=== PATIENT | male | born 1930 | race Caucasian/White ===

== ENCOUNTER 2018-02-20 10:12 | Emergency (ER) | payer OTHER ==
--- NOTE | 2018-02-20 10:52 | EDPHY ---
H & P Smoking Status: Former smoker Time Seen by Provider: 02/20/18 10:52 HPI/ROS: CHIEF COMPLAINT: Arm laceration and bleeding from the head HISTORY OF PRESENT ILLNESS: Patient was changing a large truck tire just prior to arrival and dropped it, landed on his chest pushing him onto his back on the ground. He presents with bleeding from left arm as well as the head, with some chest and back discomfort after the injury. Symptoms moderate, worse with movement, started just after dropping the tire on his chest. No radiation. REVIEW OF SYSTEMS: Eye: no change in vision ENT: no sore throat Cardiac: Right posterior chest pain at the scapular area Pulmonary: no cough or SOB Abdomen: no vomiting, diarrhea, abdominal pain Musculoskeletal: No neck or arm or leg pain. Has some low back pain after the fall. Skin: Right facial abrasion on left arm laceration Neuro: no headache, no weakness or numbness in extremities Constitutional: no fever : no urinary symptoms or hematuria A comprehensive 10 point review of systems is otherwise negative aside from elements mentioned in the history of present illness. PAST MEDICAL HISTORY: Atrial fibrillation on Eliquis, hernia, left knee and right hip surgery. Social history: Here with family General Appearance: Alert and conversant, cooperative. Eyes: No scleral icterus. Pupils equal and reactive extraocular motion intact. ENT, Mouth: Normal mucous membranes. Respiratory: Normal respiratory effort, breath sounds equal, lungs are clear to auscultation. No crepitus. Cardiovascular: Regular rate and rhythm. Normal perfusion in left hand, normal left radial pulse. Gastrointestinal: Abdomen is soft and non tender. Nontender over liver and spleen. Neurological: Alert, face symmetric, normal motor and sensory in extremities. He is able to sit on the side of the bed unassisted and use the urinal. Skin: Left forearm laceration without bony tenderness. Normal motor and sensory in fingers of left hand, and strength of wrist in dorsal and volar movmeent. Right forehead abrasion. Abrasions on the spine posteriorly in the midthoracic region. Musculoskeletal: No midline spinal tenderness, no extremity bony tenderness. Specifically no cervical mid thoracic or lumbar spine tenderness to palpation. Psychiatric: Not agitated. Emergency Department course/MDM: Noncontrast head CT for head trauma on anticoagulation, wound care, chest x-ray. 1138: negative head CT per Lety. Please see Mohinder Jack PA-C note for wound repair. 1504: Chest CT per Kinjal, negative for acute injury. 1632: Lumbar spine films show old anterolisthesis of L2 on L3, no acute traumatic findings, discussed with Chuck. Ambulatory, wants discharge which I think is reasonable at this time. Rx written for 2.5mg oxycodone #7, patient request. No NSAIDS. Will hold his eliquis for 48 hours, on it for Atrial Fibrillation, slight increased risk of stroke discussed, think benefit of lower bleeding is worth very slight stroke risk over 48 hours, consented. (Julio Dumont) Constitutional: Initial Vital Signs Temperature (C) 37.1 C 02/20/18 10:22 Heart Rate 107 H 02/20/18 10:22 Respiratory Rate 18 02/20/18 10:22 Blood Pressure 115/67 02/20/18 10:22 O2 Sat (%) 94 02/20/18 10:22 O2 Delivery Mode Room Air Allergies/Adverse Reactions: oxycodone [Oxycodone] Allergy (Intermediate, Verified 02/20/18 10:15) NAUSEA Sulfa (Sulfonamide Antibiotics) [Sulfa(Sulfonamide Antibiotics)] Allergy ( Intermediate, Verified 02/20/18 10:15) FEVER, PAIN, NAUSEA ibuprofen Allergy (Unknown, Verified 02/20/18 10:15) Unknown Home Medications: Medication Instructions Recorded Albuterol Sulfate 4 mg PO DAILY 03/27/14 Aspirin [Aspirin 81mg (*)] 81 mg PO DAILY 03/27/14 Atorvastatin Calcium [Lipitor 40 40 mg PO DAILY 03/27/14 mg (*)] Beta-Carotene(A) W-C & E/Min 1 tab PO DAILY 03/27/14 [Ocuvite] Cetirizine HCl [Allergy Relief] 10 mg PO DAILY 03/27/14 Digoxin [Lanoxin 0.25 mg] 0.25 mg PO DAILY 03/27/14 Fluticasone/Salmeter 250/50Mcg 1 puffs IH BID 03/27/14 [Advair 250/50 (*)] Metoprolol Succinate Xr [Toprol Xl 25 mg PO DAILY 03/27/14 25 mg (*)] Montelukast Sodium [Singulair 10 10 mg PO DAILY@1800 03/27/14 mg (*)] Mission-3 Fatty Acids/Fish Oil [Fish 1 each PO DAILY 03/27/14 Oil 1,000 mg Capsule] Omeprazole [Prilosec] 40 mg PO DAILY 03/27/14 Psyllium Husk (with Sugar) 1 each PO DAILY 03/27/14 [Metamucil Packet] Sodium Chloride [Saline [place]] 2 ml NASAL PRN PRN 03/27/14 Solifenacin Succinate [Vesicare 5 5 mg PO DAILY8 03/27/14 MG (*)] Vitamin B Complex [Super B-50 1 each PO DAILY 03/27/14 Complex] Acetaminophen [Tylenol 325mg (*)] 325 - 650 mg PO Q4 PRN #0 tab 04/15/14 Ferrous Sulfate [Slow Fe 140 MG 140 mg PO DAILY #30 tab.er 04/15/14 (*)] Ondansetron Odt [Zofran Odt 4 mg 4 - 8 mg PO Q6 PRN #0 tab 04/15/14 (*)] traMADol [Ultram 50 mg (*)] 100 mg PO BID #0 tab 04/15/14 Eliquis 02/20/18 Medical Decision Making - Diagnostics Imaging: Discussed imaging studies w/ merchandise buyer Radiologist, I viewed and interpreted images myself - Diagnostics Imaging Results: Imaging Impressions Chest X-Ray 02/20/18 11:03 Impression: Tiny bilateral pleural effusions. Head CT 02/20/18 11:03 Impression: 1. No acute intracranial process. 2. Changes of chronic microvascular ischemic disease. 3. Chronic sinusitis and chronic nasal secretions. Stable, possible meningioma, near the left auditory canal. Findings and recommendations discussed with JULIO DUMONT at 1137 hour, 2017. Lumbar Spine X-Ray 02/20/18 13:09 Impression: 1. No acute osseous findings. 2. Stable grade 1 anterolisthesis of L2 relative to L1 and L3, with slight increase in multilevel degenerative change, as above. Chest CT 02/20/18 13:27 Impression: 1. Mild bilateral pleural effusions right side greater than left with adjacent atelectatic change. 2. No evidence of fracture about the chest. 3. Atherosclerotic calcifications associated with the thoracic aorta and coronary arteries. Coronary stents are suspected. 4. Moderate to marked enlargement of the right atrium as well as moderate enlargement of the left atrium. This could be related to chronic ventricular heart failure versus possibility of mitral and/or tricuspid valve regurgitation. Findings discussed with Julio Dumont M.D. at 15:05 hour, 02/20/2018. Procedures: Procedure: Laceration repair. I was requested by Dr. Dumont to perform wound closure I explained the indications, risks and benefits for both laceration repair and anesthetic administration. Verbal consent was obtained from the patient. The laceration on the left forearm was anesthetized using 0.5% bupivicaine with epinephrine. After anesthetic administered the patient was observed for a period of time and had no apparent adverse effects. The wound was cleaned, prepped, draped in normal sterile fashion and explored to its base. No foreign body seen, no foreign bodies palpated. There were no deep structures involved. No tendon injury was identified. The wound was repaired with 13 simple interrupted 4 0 Prolene sutures. The wound repair was complex. The procedure was performed by myself. Patient has been informed that scarring will occur, although efforts have been made to minimize this. (Alexandrea Jack) Differential Diagnosis: Head injury differential including but not limited to subdural, epidural, skull fracture, brain contusion, subarachnoid. (Julio Dumont) - Data Points Laboratory Results: 02/20/18 13:21 POC Hgb 8.5 gm/dL L gm/dL (13.7-17.5) POC Hct 25 % L % (40-51) POC Sodium 137 mEq/L mEq/L (135-145) POC Potassium 4.1 mEq/L mEq/L (3.3-5.0) POC Chloride 103 mEq/L mEq/L (97-110) POC BUN 27 mg/dL H mg/dL (7-23) POC Creatinine 1.1 mg/dL mg/dL (0.7-1.3) POC Glucose 99 mg/dL mg/dL (70-100) Medications Given: Discontinued Medications Tranexamic Acid (Cyklokapron) 500 mg TP EDNOW ONE Stop: 02/20/18 12:48 Last Admin: 02/20/18 13:37 Dose: Not Given Point of Care Test Results: Chemistry 02/20/18 13:21 POC Sodium 137 mEq/L mEq/L (135-145) POC Potassium 4.1 mEq/L mEq/L (3.3-5.0) POC Chloride 103 mEq/L mEq/L (97-110) POC BUN 27 mg/dL H mg/dL (7-23) POC Creatinine 1.1 mg/dL mg/dL (0.7-1.3) POC Glucose 99 mg/dL mg/dL (70-100) ISTAT H&H 02/20/18 13:21 POC Hgb 8.5 gm/dL L gm/dL (13.7-17.5) POC Hct 25 % L % (40-51) Departure - Departure Disposition: Home, Routine, Self-Care Clinical Impression: Contusion of back wall of thorax Qualifiers: Encounter type: initial encounter Laterality: unspecified laterality Qualified Code(s): S20.229A - Contusion of unspecified back wall of thorax, initial encounter Laceration of left forearm without foreign body Qualifiers: Encounter type: initial encounter Qualified Code(s): S51.812A - Laceration without foreign body of left forearm, initial encounter Condition: Good Instructions: Laceration (ED), Head Injury (ED), Abrasion (ED) Additional Instructions: Wound Care Follow-Up: Removal of sutures in 12-14 days. Suture removal is complimentary in uncomplicated cases. Infection or abnormal findings would require reevaluation by the MD. In that case, you may be billed. Referrals: Elba Reilly MD [Primary Care Provider] - As per Instructions
[2018-02-20] MEDS ORDERED: TRANEXAMIC ACID 1,000 MG/10 ML VIAL TP ONE (12:47)
[2018-02-20] MEDS ORDERED: IOPAMIDOL (ISOVUE-300) 100 ML BTL ONE (13:41)
[2018-02-20 16:12] VITALS: BP 117/69
--- NOTE | 2018-02-22 15:46 | PQFORM ---
PHYSICIAN QUERY FORM Needs Your Response This query form is being sent to you to assure this patient record is coded properly. Please respond to the question below: THIRD GRADE TEACHER QUESTION: To: Alexandrea KIM In regards to the patient Derek Santiago. Patient presented to the ER on with a mminer head injury and Laceration to his left forearm. Could you please document the length of the laceration repair? Thank you, Mckayla Martínez, MARLA, CDIP, B.S. transformation manager. INSTRUCTIONS FOR RESPONSE: Answer question by clicking on the "Edit Document" button. Move cursor to area below the stars. When complete, hit "Save." Click on the "Sign" button, then click "Sign" again. Type in your PIN and hit "Enter." Length of laceration = 14 cm MTDD
== END 2018-02-20 16:51 | disposition home or self-care (01) ==
LOC: SUPCPDRO 10:12
PROC: 0HQEXZZ Repair Left Lower Arm Skin, External Approach (ICD-10-PCS; principal; 2018-02-20)
DX: S51.812A Laceration without foreign body of left forearm, initial encounter (principal); S20.229A Contusion of unspecified back wall of thorax, initial encounter; S00.91XA Abrasion of unspecified part of head, initial encounter; W20.8XXA Other cause of strike by thrown, projected or falling object, initial encounter; Y93.89 Activity, other specified; J90 Pleural effusion, not elsewhere classified; I48.91 Unspecified atrial fibrillation; Z79.01 Long term (current) use of anticoagulants
CPT/HCPCS: 13121; 13122; 70450; 71046; 71260; 72100; 99285; Q9967; 82435-PO; 82565-PO; 82947-PO; 84132-PO; 84295-PO; 84520-PO; 85014-PO

== ENCOUNTER 2018-02-27 12:17 | Emergency (ER) | payer OTHER ==
[2018-02-27 12:33] VITALS: BP 120/80
== END 2018-02-27 13:02 | disposition left against medical advice (07) ==
DX: Z53.21 Procedure and treatment not carried out due to patient leaving prior to being seen by health care provider (principal); R04.0 Epistaxis

== ENCOUNTER 2018-08-23 15:29 | Emergency (ER) | payer OTHER ==
--- NOTE | 2018-08-23 16:34 | EDPHY ---
H & P Stated Complaint: Fall @ ~ 1320. left arm and hit head . on eliquis .Denies LOC Time Seen by Provider: 08/23/18 16:29 HPI/ROS: HPI CHIEF COMPLAINT: Fall, head injury, skin tear, on Eliquis. HISTORY OF PRESENT ILLNESS: This patient is a 88-year-old male, he presents to the emergency room by private vehicle with his daughter after he had a fall at her house. It is unclear exactly what happened they are unsure why he fell. He states that he thinks he lost his balance. He may have tripped over something but he is not 100% accurate he denies LOC. However he did have head strike and sustained an abrasion to his left forehead, additionally a skin tear to his right arm. And also right upper arm hematoma. He is on Eliquis. The patient arrives to the emergency room without any complaints he denies chest pain or shortness of breath, denies headache or neck pain. Denies extremity pain except some mild right arm pain. The patient typically gets his care [facility] for congestive heart failure he is on Eliquis for AFib, and diuretics for CHF. 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 He additionally gets most of his medical care at [facility] Past Medical History: Significant past medical history for AFib on Eliquis, additionally CHF, significant medical history for coronary disease. Past Surgical History: No recent surgery. Social History: Lives in [place]. Denies drugs alcohol tobacco. Family History: Noncontributory. Daughter at bedside. ROS REVIEW OF SYSTEMS: 10 Systems were reviewed and negative with the exception of the elements mentioned in the history of present illness. Exam Constitutional triage nursing summary reviewed, vital signs reviewed, awake/ alert. Eyes normal conjunctivae and sclera, EOMI, PERRLA. HENT head and neck exam no significant pain with palpation of the neck no step- offs or crepitus, there is an abrasion left forehead,, dry mucus membranes, no epistaxis, neck supple/ no meningismus, no raccoon eyes. Respiratory chest wall nontender to palpation. Clear lungs bilaterally. normal breath sounds, no respiratory distress, no wheezing. Cardiovascular rate normal, regular rhythm, no murmur, no edema, distal pulses normal. Gastrointestinal soft, non-tender, no rebound, no guarding, normal bowel sounds, no distension, no pulsatile mass. Genitourinary no CVA tenderness. Musculoskeletal no midline vertebral tenderness, full range of motion, no calf swelling, no tenderness of extremities, no meningismus, good pulses, neurovascularly intact. Skin right upper extremity shows a skin tear over the right lateral elbow, additionally hematoma right upper humerus. However full range of motion. No significant pain with range of motion of the right arm and neurovascularly intact distally. Neurologic awake, alert and oriented x 3, AAOx3, moves all 4 extremities equally, motor intact, sensory intact, CN II-XII intact, normal cerebellar, normal vision, normal speech. Psychiatric normal mood/affect. Heme/Lymph/Immune no lymphadenopathy. Differential Diagnosis: Includes but is not limited to mechanical trip and fall , musculoskeletal injury, intracranial bleed, cervical spine injury, chest wall injury, rib fractures, skin tear, hematoma, vasovagal syncope, cardiogenic syncope, electrolyte disturbance, dehydration Medical Decision Making: Plan for this patient unexplained event of fall, unclear if this was a syncopal episode. Patient does not believe so he thinks he may have tripped over something does not really recall exactly. He fell and hit his head. He has a left forehead abrasion. Plan will be for CT scan head without contrast due to trauma on Eliquis, as well as CT cervical spine without contrast for trauma, two view chest x-ray, EKG, basic labs. Re-evaluate Re-evaluation: Troponin 0.00 EKG interpretation by me on record in [employer] system. Impression time of EKG 1638, sinus rhythm rate of 90 right bundle-branch block present. T-wave abnormalities V1 V2 V3 similar previous EKG dated 07/28/2011. I do not appreciate significant ST elevation or ST depression. Creatinine review 1.6. Chest x-ray shows cardiomegaly, peribronchial thickening. No evidence of rib fractures or pneumothorax. CT scan head without contrast negative for acute traumatic injury called to me by Dr. Layton. CT cervical spine without contrast negative for acute traumatic injury. Called to me by Dr. Layton. Patient's right skin tear elbow was bandage. Patient is left forehead abrasion that was cleaned and bandaged. Patient has been resting comfortably here 1821 without any complaints. He states he feels fine. He ambulated well throughout the emergency without any difficulty. He has been on the registered nurse cardiac without any cardiac arrhythmia. Clinically on exam he does appear dry. I do not believe that he is in volume overload. No evidence of significant CHF on exam. CT scan, chest x-ray, labs reviewed. Creatinine slightly elevated 1.6. Patient has 1.1 creatinine I year ago. This supports this diagnosis of dehydration. Getting 250cc fluid bolus due to dehydrated. Long discussion with the family 182 about lab work, imaging. They are discussing if they would like him observed overnight. Long discussion with the daughter is at bedside, as well as his over the phone they would like him to be observed overnight due to his fall, generalized weakness, multiple abrasions skin tears, forehead hematoma, dehydration. 1940: Family updated, patient updated, updated, family wants him admitted. Patient okay with this. family/patient requesting to be admitted to [facility]. Appropriate transfer will be set up. EMTALA form filled out. Accepted at [facility] Dr. Walt Sifeuntes. Source: Patient, Family - Personal History Current Tetanus/Diphtheria Vaccine: Unsure Current Tetanus Diphtheria and Acellular Pertussis (TDAP): Unsure Tetanus Vaccine Date: unsure - Medical/Surgical History Hx Asthma: Yes Hx Chronic Respiratory Disease: No Hx Diabetes: No Hx Cardiac Disease: Yes Hx Renal Disease: No Hx Cirrhosis: No Hx Alcoholism: No Hx HIV/AIDS: No Hx Splenectomy or Spleen Trauma: No Other PMH: ATRIAL FIB. L KNEE. HIP R. ULCER REPAIR. HERNIA - Social History Smoking Status: Former smoker Constitutional: Initial Vital Signs Temperature (C) 36.8 C 08/23/18 15:40 Heart Rate 84 08/23/18 15:40 Respiratory Rate 18 08/23/18 15:40 Blood Pressure 145/95 H 08/23/18 15:40 O2 Sat (%) 98 08/23/18 15:40 O2 Delivery Mode Room Air Allergies/Adverse Reactions: oxycodone [Oxycodone] Allergy (Intermediate, Verified 08/23/18 15:47) NAUSEA Sulfa (Sulfonamide Antibiotics) [Sulfa(Sulfonamide Antibiotics)] Allergy ( Intermediate, Verified 08/23/18 15:47) FEVER, PAIN, NAUSEA ibuprofen Allergy (Unknown, Verified 08/23/18 15:47) Unknown Home Medications: Medication Instructions Recorded Aspirin [Aspirin 81mg (*)] 81 mg PO DAILY 03/27/14 Atorvastatin Calcium [Lipitor 40 40 mg PO DAILY 03/27/14 mg (*)] Metoprolol Succinate Xr [Toprol Xl 25 mg PO DAILY 03/27/14 25 mg (*)] Montelukast Sodium [Singulair 10 10 mg PO DAILY@1800 03/27/14 mg (*)] Acetaminophen [Tylenol 325mg (*)] 325 - 650 mg PO Q4 PRN #0 tab 04/15/14 Advair Hfa 115-21 Mcg Inhaler 08/23/18 Blood Builder Vit w/ Iron 08/23/18 Citalopram 08/23/18 Eliquis 08/23/18 Furosemide 08/23/18 Melatonin 08/23/18 Oxybutynin 08/23/18 Medical Decision Making - Diagnostics Imaging Results: Imaging Impressions Cervical Spine CT 08/23/18 16:29 Impression: 1. No acute abnormality seen about the cervical spine. 2. Degenerative disk disease lower cervical spine along with facet hypertrophy more prominent along the right side of the mid and upper cervical spine. Findings discussed with Kvng Anna MD at 17:27 hour, 08/23/2018. Chest X-Ray 08/23/18 16:29 Impression: Cardiac silhouette enlargement with mild pulmonary venous hypertension and peribronchial thickening, but no rib fracture or pneumothorax. Head CT 08/23/18 16:29 Impression: 1. No significant atrophy. 2. No hemorrhage, mass effect, or definite acute peripheral infarct. 3. Stable moderate nonspecific hypodensities in the white matter of bilateral cerebral hemispheres. Differential diagnosis includes microvascular ischemic disease, post-infectious/post-inflammatory sequela, atypical demyelinating disease, or migraine-related sequela. Small white matter lacunar infarcts may also have this appearance. If symptoms worsen, additional imaging may be necessary. Findings discussed with Kvng Anna MD at 17:25 hour, 08/23/2018. - Data Points Laboratory Results: 08/23/18 08/23/18 16:43 16:43 POC Sodium 139 mEq/L mEq/L (135-145) POC Potassium 4.8 mEq/L mEq/L (3.3-5.0) POC Chloride 97.0 mEq/L mEq/L (97-110) POC Total CO2 28 mEq/L mEq/L (22-31) POC BUN 48 mg/dL H mg/dL (7-23) POC Creatinine 1.6 mg/dL H mg/dL (0.7-1.3) POC Glucose 110 mg/dL H mg/dL (70-100) POC Calcium 9.6 mg/dL mg/dL (8.5-10.4) POC Total Bilirubin 1.3 mg/dL mg/dL (0.1-1.4) POC AST 61 IU/L H IU/L (17-59) POC ALT 52 IU/L IU/L (21-72) POC Alk Phosphatase 174 IU/L H IU/L (38-126) POC Troponin I 0.01 ng/mL ng/mL (0.00-0.08) POC Total Protein 6.4 g/dL g/dL (6.3-8.2) POC Albumin 3.9 g/dL g/dL (3.5-5.0) Point of Care Test Results: CBC CBC Collection Date 08/23/18 CBC Collection Time 16:40 WBC 4.83 RBC 3.04 HGB 10.2 HCT 30.3 PLT 91 Neut # 3.66 Neut 75.8 LYMPH # 0.80 LYMPH 16.6 MCV 99.7 Chemistry 08/23/18 08/23/18 16:43 16:43 POC Sodium 139 mEq/L mEq/L (135-145) POC Potassium 4.8 mEq/L mEq/L (3.3-5.0) POC Chloride 97.0 mEq/L mEq/L (97-110) POC Total CO2 28 mEq/L mEq/L (22-31) POC BUN 48 mg/dL H mg/dL (7-23) POC Creatinine 1.6 mg/dL H mg/dL (0.7-1.3) POC Glucose 110 mg/dL H mg/dL (70-100) POC Calcium 9.6 mg/dL mg/dL (8.5-10.4) POC Total Bilirubin 1.3 mg/dL mg/dL (0.1-1.4) POC AST 61 IU/L H IU/L (17-59) POC ALT 52 IU/L IU/L (21-72) POC Alk Phosphatase 174 IU/L H IU/L (38-126) POC Troponin I 0.01 ng/mL ng/mL (0.00-0.08) POC Total Protein 6.4 g/dL g/dL (6.3-8.2) POC Albumin 3.9 g/dL g/dL (3.5-5.0) Departure - Departure Disposition: Acute Care Hospital [facility] Clinical Impression: Fall, IFTIKHAR (acute kidney injury), Skin tear of elbow without complication, Scalp hematoma Condition: Fair Referrals: NONE *PRIMARY CARE P,. [Primary Care Provider] - As per Instructions
[2018-08-23] MEDS ORDERED: NS 250 ML IV ONE (19:20)
[2018-08-23 20:30] VITALS: BP 132/88
--- NOTE | 2018-08-26 07:56 | CPEKG ---
Test Reason : OPEN Blood Pressure : / mmHG Vent. Rate : 090 BPM Atrial Rate : 160 BPM P-R Int : 082 ms QRS Dur : 146 ms QT Int : 397 ms P-R-T Axes : -75 264 -75 degrees QTc Int : 486 ms Sinus or ectopic atrial rhythm Short FL interval Right bundle branch block Anterior infarct, age indeterminate Confirmed by Kvng Anna ([id number]) on 08/26/2018 7:55:11 AM Referred By: Kvng Anna Confirmed By:Kvng Anna
== END 2018-08-23 20:20 | disposition short-term general hospital (02) ==
LOC: CED 15:29
DX: S50.311A Abrasion of right elbow, initial encounter (principal); S00.81XA Abrasion of other part of head, initial encounter; N28.9 Disorder of kidney and ureter, unspecified; E86.9 Volume depletion, unspecified; I48.91 Unspecified atrial fibrillation; W19.XXXA Unspecified fall, initial encounter; Y92.009 Unspecified place in unspecified non-institutional (private) residence as the place of occurrence of the external cause; Z79.01 Long term (current) use of anticoagulants
CPT/HCPCS: 70450-PO; 71046-PO; 72125-PO; 80053-ER; 84484-ER; 85025-QW-ER; 96360-ER; 99285-ER